=== PATIENT | female | born 1965 ===

== ENCOUNTER 2018-12-09 10:14 | Outpatient (CLI) | payer SELFPAY | END 2018-12-09 10:15 | disposition home or self-care (01) | LOC: C.LAB 10:14 | DX: E78.2 Mixed hyperlipidemia (principal); Z12.11 Encounter for screening for malignant neoplasm of colon; R73.01 Impaired fasting glucose ==

== ENCOUNTER 2018-12-11 11:03 | Outpatient (CLI) | payer SELFPAY | END 2018-12-11 11:04 | disposition home or self-care (01) | LOC: C.LAB 11:03 | DX: E78.2 Mixed hyperlipidemia (principal); Z12.81 Encounter for screening for malignant neoplasm of oral cavity; R73.01 Impaired fasting glucose ==

== ENCOUNTER 2019-04-11 09:13 | Outpatient (CLI) | payer OTHER | END 2019-04-11 09:14 | disposition home or self-care (01) | LOC: C.LAB 09:13 ==